=== PATIENT | male | born 1960 | race Caucasian/White ===

== ENCOUNTER 2023-09-22 09:30 | Observation (INO) ==
--- NOTE | 2023-08-17 16:04 | PAT Medication Instructions ---
Medication Instructions Date of Service August 17, 2023 Home Medications aspirin 81 mg capsule 81 mg PO QAM lisinopril 40 mg tablet 40 mg PO QAM ASK your prescriber and surgeon aspirin 81 mg capsule 81 mg PO QAM DO NOT take the morning of surgery lisinopril 40 mg tablet 40 mg PO QAM Other Notes If you have any questions please call us at [phone] or [phone] or [phone] or [phone]
--- NOTE | 2023-08-23 08:28 | Anesthesiology Consultation ---
Date of Service August 23, 2023 Assessment & Plan (1) Encounter for pre-operative examination: Chart Review Chart Review: Acceptable Risk for Surgery (pending PCP clearance ) and Patient seen in Pre Admission Testing - Awaiting PCP clearance 09/10/23- Dr. Camacho River (please send optimization to PCP regarding new onset diabetes) - Check BSG AM DOS - Patient not an ideal OPJ (BMI, functional status, possible NATHAN)- currently scheduled for 23 hour obs Per PAT appt on 08/23/23, no recent illness/disease exposures, illness related symptoms, or recent illness/disease positive tests. Will leave to surgeon's discretion if preop Covid testing needed Teaching & Discussion Pre-Anesthesia Teaching/Discussion Notes: Instructed NPO after midnight before surgery,except medications with 15 cc of water. Medication instructions provided according to the [facility] guidelines. History Surgery Operation Date: 09/22/23 11:40 Proposed Procedures p Left Total Knee Arthroplasty - Todd Ortiz DO Height/Weight Height: 5 ft 11 in Weight: 143.5 kg Allergies Allergy/AdvReac Type Severity Reaction Status Date / Time No Known Allergies Allergy Verified 08/17/23 10:44 Medications Home Medications Medication Instructions Recorded Confirmed Last Taken aspirin 81 mg capsule 81 mg PO QAM 08/17/23 08/17/23 Unknown lisinopril 40 mg tablet 40 mg PO QAM 08/17/23 08/17/23 Unknown Past Medical History Medical History (Updated 08/24/23 @ 08:35 by Elidia Akhtar PA-C) Diabetes Presumed/newly diagnosed - Hgb A1C 6.[address] [facility] appt 08/24/23 Hypertension Exercise / Class Metabolic Activity III < 4 Walking/Shop/Light housework (one flight of stairs- no chest pain, mild SOB ) Past Surgical History Surgical History History of total right knee replacement Hx of colonoscopy Hx of foot surgery rt heel>hardware intact Hx of sinus surgery Hx of umbilical hernia repair Past Anesthesia History No Hx of Anesthesia Complications and No Family Hx of Anesthesia Complications History of PONV No Hx of PONV and No Hx of Motion Sickness Social History Smoking Status: Never smoker Do You Dip or Chew Tobacco: No Hx Alcohol Use: No Hx Substance Use: No substance use type: does not use Review of Systems - Hx of snoring- sleep study many years ago- no NATHAN at that time Patient denies chest pain, shortness of breath, dyspnea on exertion, reflux, cough, wheezing, palpitations. No hx of seizures, stroke, [place]. No hx of blood clots or blood transfusions Physical Exam Vital Signs VITALS BP 134/81 P 75 TEMP 97.7 SP02 94% RESP 16 Constitutional no acute distress ENMT Mouth: no TMJ clicking Thyromental Distance: > or= 3.5 Finger Breadths (4.0) Mallampati Class: II Neck + limited neck extension (mild) Respiratory normal respiratory effort; no respiratory distress Auscultation: lungs clear to auscultation bilaterally; no wheezes Cardiovascular Rate/Rhythm: regular rate and regular rhythm Heart Sounds: no murmur Vessels: no carotid bruit Musculoskeletal Spine: no pain with cervical ROM Extremities: extremities normal to inspection Psychiatric Orientation: alert Lab Results Anesthesia Preop Results Results Anesthesia Widget: WBC 6.32 K/ul (4.8-10.8) 08/23/23 Hgb 14.6 g/dl (14.0-18.0) 08/23/23 Hct 43.2 % (42.0-52.0) 08/23/23 Plt 177 K/uL (130-400) 08/23/23 Na 141 mmol/L (136-145) 08/23/23 K 4.9 mmol/L (3.5-5.1) 08/23/23 Cl 105 mmol/L (98-107) 08/23/23 CO2 29 mmol/L (21-32) 08/23/23 BUN 19 mg/dl (6-23) 08/23/23 Creat 1.16 mg/dl (0.6-1.4) 08/23/23 Glucose Level 121 mg/dl (70-99(Fasting)) H 08/23/23 PT 10.0 Seconds (9.0-12.0) 08/23/23 PTT 29 Seconds (21-31) 08/23/23 INR 0.9 (0.9-1.1) 08/23/23 HA1c 6.8 % (4.5-5.6) H 08/23/23 Blood Type O Positive 08/23/23 Antibody Screen NEGATIVE 08/23/23 Testing Electrocardiogram Date: 08/23/23 Findings: + NSR @ (73bpm) Normal EKG per cardio
--- NOTE | 2023-08-27 08:14 | History & Physical Report ---
Date of Service August 27, 2023 date of surgery: 09/22/23 Procedure: Left Total Knee Arthroplasty Surgeon: Todd Ortiz, DO Assessment & Plan (1) Arthritis of knee, left: Plan: Further care discussed with patient and at this point in time has failed conservative measures and would like to proceed with a left total knee replacement. Plan on discharge will be home with home health physical therapy. DVT prophylaxiswith TEDs, SCDs and will also place on aspirin 81 mg p.o. b.i.d. for a month postop. Patient will have follow up appointment in our office two weeks post op for staple/suture removal and re-evaluation. Patient otherwise has no other questions or concerns. The risks and benefits have been discussed including, but not limited to, risk of infection, nerve injury, stiffness, loss of motion, failure to improve, etc. Reasonable outcomes and options of treatment were discussed. An explanation of appropriate alternatives to the procedure that may be advantageous were discussed and their risks and benefits, as well as the risks and benefits of not proceeding with treatment. I offered to answer any additional inquiries concerning the treatment involved. All the patient's questions were answered. The patient is agreeable, understanding of the treatment plan and alternatives, and wishes to proceed with the treatment plan. Please note the above document was generated using voice recognition software. It may contain grammatical, syntax or spelling errors. Any formal questions or concerns about the content, text or information contained within the body of this dictation should be directly addressed to the provider for clarification History of Present Illness Chief Complaint: left knee pain Primary Care Provider: Todd Sauer Jelani is a 62-year-old male who presented for preop evaluation prior to left total knee arthroplasty. He has a longstanding history of left knee pain which is now affecting his daily activities including walking standing using stairs. Rates his current pain as a 7 out of 10, is tried oral anti-inflammatories and Tylenol with no improvement. X-rays were reviewed which show advanced generative changes to his left knee, at this point time is failed conservative measures and wishes to proceed with left total knee arthroplasty Allergies Allergy/AdvReac Type Severity Reaction Status Date / Time No Known Allergies Allergy Verified 08/17/23 10:44 Home Medications Medication Instructions Recorded Confirmed Type aspirin 81 mg capsule 81 mg PO QAM 08/17/23 08/17/23 History lisinopril 40 mg tablet 40 mg PO QAM 08/17/23 08/17/23 History Past Med/Surg History Medical History Diabetes Presumed/newly diagnosed - Hgb A1C 6.8 at PAT appt 08/24/23 Hypertension Surgical History Hx of foot surgery rt heel>hardware intact History of total right knee replacement Hx of umbilical hernia repair Hx of colonoscopy Hx of sinus surgery Social History Smoking Status: Never smoker Second Hand Exposure: No; Do You Dip or Chew Tobacco: No; Hx Alcohol Use: No Hx Substance Use: No Preferred Language: Tamazight Communication Ability: Effective Taper [employer]ed [employer] Layout Required: No Beliefs That Will Affect Care: None Current Living Situation: Alone Feels Safe at Home: Yes Assistive Devices: Glasses Review of Systems Review of Systems: All systems reviewed & are unremarkable except as noted in HPI & below Constitutional: no fever, no chills and no sweats Respiratory: no cough and no dyspnea Cardiovascular: no chest pain, no dyspnea and no orthopnea Gastrointestinal: no abdominal pain, no nausea and no vomiting Musculoskeletal: as per Subjective / HPI Physical Exam Physical Exam: HT: 5ft 11in WT: 143.5kg Constitutional: WD/WN, vitals as above no acute distress Respiratory: normal respiratory effort, lungs clear to auscultation no respiratory distress, no labored breathing and does not use accessory muscles Cardiovascular: RRR, no murmur, no edema Gastrointestinal (Abdomen): normal bowel sounds, soft, nontender, no hepatosplenomegaly Musculoskeletal: Knee: + knee abnormal to inspection (LEFT KNEE), + effusion (+1 effusion), + limited ROM of knee (ROM 0/3/110), + knee ROM with crepitation, + joint line tenderness (medial joint line) and + Ora's sign positive; no deformity, no skin erythema, no ecchymosis, no valgus laxity, no varus laxity, anterior drawer test negative, David's sign negative and pivot shift test negative Results & Data Results & Data Diagnostic Findings Left Knee X-ray: left knee series confirm advanced degenerative changes to the left knee, greatest medial compartments and patellofemoral joint, showing joint space narrowing, osteophyte formation and subchondral sclerosis. no acute bony pathology noted.
[~2023-09-22 09:30] MED LIST: BUPIVACAINE 0.25% PF 30 ML VIAL ONE; BUPIVACAINE 0.5 % 5 MG/1 ML PF 10ML VIAL ONE
[2023-09-22] MEDS: oxyCODONE HCL 10 MG TABCR (OxyCONTIN) PO SCH (11:08)
[2023-09-22] MEDS: METOCLOPRAMIDE HCL 10 MG TABLET PO SCH (11:08)
[2023-09-22] MEDS: ACETAMINOPHEN 500 MG TAB PO SCH ×2 (11:08→17:16)
[2023-09-22] MEDS: LR 60ML/HR IV SCH (11:09)
[2023-09-22] MEDS: dexAMETHasone**PF** 10 MG/ML VIAL IV SCH (11:09)
[2023-09-22] MEDS: CeleBREX 200 MG CAP PO SCH (11:09)
[2023-09-22] MEDS: GABAPENTIN 600 MG DOSE PO SCH (11:09)
[2023-09-22] MEDS: FAMOTIDINE 20 MG TAB PO SCH (11:09)
[2023-09-22] MEDS: LR 500ML BOLUS, THEN 15ML/HR IV SCH (11:24)
--- NOTE | 2023-09-22 11:27 | History & Physical Bridge Note ---
Date of Service September 22, 2023 History & Physical Bridge Note I have examined the patient, reviewed the History & Physical and in the interval since the performance of the History & Physical I have noted the following changes of clinical significance: no changes noted
[2023-09-22] MEDS ORDERED: MIDAZOLAM HCL 1 MG/ML 2ML VIAL ONE ×2 (11:41→13:36)
[2023-09-22] MEDS ORDERED: ONDANSETRON INJ 2 MG/ML 2 ML VIAL ONE (11:41)
[2023-09-22] MEDS ORDERED: fentaNYL citrate PF 100 MCG/2 ML VIAL IV PRN (12:01)
[2023-09-22] MEDS ORDERED: ATROPINE SULFATE 0.1 MG/ML 10ML SYR IV PRN (12:01)
[2023-09-22] MEDS ORDERED: ePHEDrine sulfate 50 MG/ML AMP IV PRN (12:01)
[2023-09-22] MEDS ORDERED: PROMETHAZINE HCL 6.25 MG in SODIUM CHLORIDE 0.9% 50 ML IV PRN (12:01)
[2023-09-22] MEDS ORDERED: ONDANSETRON INJ 2 MG/ML 2 ML VIAL IV PRN ×2 (12:01→16:46)
[2023-09-22] MEDS: TRANEXAMIC ACID 1,000 MG **IV Pre-op IV SCH (13:14)
[2023-09-22] MEDS: ceFAZolin 3000MG 3,000 MG/72.5 ML BAG IV SCH (13:30)
[2023-09-22] MEDS ORDERED: PROPOFOL IV EMULSION 10 MG/ML 20 ML VIAL IV ONE ×2 (13:36→14:27)
[2023-09-22] MEDS: ORTHO JOINT ANESTHETIC ONE (14:08)
[2023-09-22] MEDS ORDERED: LIDOCAINE 2% 2 ML VIAL/AMP(20MG/ML) INFIL ONE (14:27)
[2023-09-22] MEDS: TRANEXAMIC ACID 1,000 MG **IV Intra-op IV SCH (14:41)
[2023-09-22] MEDS: ROPIV 0.5% 246mg, Ketorolac 30mg, EPINEPHrine 0.5mg in NSS INFIL SCH (14:41)
--- NOTE | 2023-09-22 14:46 | Operative Report ---
Post Operative Report Pre & Post Diagnosis Operation Date: 09/22/23 11:40 Pre-Op Diagnosis: Left knee osteoarthritis. Post-Op Diagnosis: Left knee osteoarthritis. I identified the patient and participated in the time-out.: Yes Procedure Operation Date: 09/22/23 11:40 Actual Procedures p Left Total Knee Arthroplasty(Left) utilizing [employer]am [employer] Nephew journey 2 patient- matched total knee arthroplasty size 7 femur size 5 tibia size 11 poly size 35 oval patella- Todd Ortiz DO Surgeon Todd Ortiz DO Personnel Placement Specialist VALERIE Nichols Estimated Blood Loss 10 Findings Consistent with Post-Op Diagnosis Patient presents with severe end-stage tricompartmental degenerative joint disease of the left knee varus alignment 10 degree flexion contracture marginal osteophytes subchondral sclerosis with subchondral cystic changes and moderate to large effusion Specimens Bone and cartilage Drains Medium bore Hemovac Anesthesia Type MAC Spinal Regional Complications none Disposition Accompanied Patient To Recovery: No Disposition: Recovery Room Indications Patient presents with severe end-stage DJD of the left knee having failed attempted conservative management occluding physical therapy anti-inflammatories relative rest activity modifications corticosteroid injection viscosupplementation patient presents for total knee arthroplasty Description of Procedure After proper prepping and draping of the left lower extremity anterior midline incision was made over the region of the extensor extensor mechanism after meticulous hemostasis was obtained and maintained in subcutaneous tissues a medial parapatellar incision was made The patella was subluxed lateralward the medial lateral gutter were cleaned from any hypertrophic synovitis and scar tissue of the distal femoral block was placed and the distal femoral osteotomy cut was made subsequently the chamfers anterior and posterior osteotomy cuts were made utilizing the 4-in-1 block the tibia was subsequently subluxed anteriorward medial and ateral meniscal remnants were excised in their entirety remnants of the anterior and posterior cruciate ligaments were excised in their entirety excellent exposure of the proximal tibia was obtained the tibial osteotomy guide was placed on the proximal tibial osteotomy cut was made once again the knee was irrigated with copious amounts of sterile saline solution the patella was subsequently everted lateralward thickened scar tissue around the patella was removed the patella was subsequently cut utilizing a freehand technique and was drilled prepared for final preparation and placement of patella socially flexion-extension gaps were checked and the equal and symmetric trials were placed to the appropriate femoral and tibial trials with poly-spacer being placed for equal flexion and extension gaps and full range of motion including extension to 0 and flexion to 140 the trial components after having been taken to recovery range of motion was subsequently removed meticulous hemostasis was obtained and maintained subsequently a knee block injection of joint cocktail including ropivacaine 0.5% 150 mg. Bupivacaine 0.5% epinephrine 1-200,030 mL's toradol 30 mg dexamethasone 4 mg ketamine 10 mg clonidine 100 micrograms normal saline solution 30 mg was infiltrated into the soft tissues of the posterior knee medial lateral gutters and periosteal synovium special attention was paid to protect neurovascular structures at all times subsequently trial components having been removed the knee was irrigated with sterile saline solution. debris was removed the proximal tibia was subsequently prepared and was made ready for the placement of the tibial component tibial component was also cemented and tamped into position the femoral component was subsequently placed and cemented in the position the patellar component was subsequently cemented in position because hemostasis once again obtained and maintained wound having been thoroughly irrigated with debridement and debridement lavage was performed as well as a medial parapatellar incision closed with #1 Vicryl in interrupted fashion subcutaneous was closed with #2 Vicryl skin was closed with skin clips. PA-C was necessary for prepping and drapping as well as wound closure of deep fascia Sub cutaneous tissue and skin and was necessary for the case. A sterile compressive dressing was placed patient was taken to recovery in stable condition of report dictated by Angel I attest to the content of the Intraoperative Record and any orders documented therein. Any exceptions are noted below.Due to the complex nature of the procedure, the entire surgery was performed with the operational assistance of VALERIE Nichols. The branch assistant, under direct supervision, was involved in the actual performance of all aspects of the surgical procedure including hemostasis, tissue retraction and incision, instrument management, patient positioning, and wound closure. I attest to the content of the Intraoperative Record and any orders documented therein. Any exceptions are noted below.
--- NOTE | 2023-09-22 15:35 | XRay Report ---
TWO VIEWS LEFT KNEE CLINICAL HISTORY: Postoperative examination. FINDINGS: AP and crosstable lateral portable views of the left knee are obtained. A left knee arthrop lasty is in near anatomic alignment. There has been undersurface remodeling of the patella. No acute fracture is seen. There are expected postoperative changes around the knee including skin clips, a davison rgical drain, soft tissue edema, and subcutaneous gas. IMPRESSION: Expected postoperative changes status post left knee arthroplasty. No acute fracture is s een. ACT 112: Negative or not required by law. Electronically signed by: Ascencion Souza M.D. 09/22/2023 3:34 PM
--- NOTE | 2023-09-22 16:05 | Anesthesiology Progress Note ---
Date of Service September 22, 2023 Anesthesia Post Procedure Vital Signs Vital Signs: Temp Pulse Pulse Resp BP Pulse Ox O2 Del Method 09/22/23 16:00 73 14 162/87 H 98 Nasal Cannula 09/22/23 15:50 80 16 157/81 H 95 Nasal Cannula 09/22/23 15:40 77 14 143/81 H 97 Oxymask 09/22/23 15:30 75 14 134/71 97 Oxymask 09/22/23 15:20 89 16 105/71 98 Oxymask 09/22/23 15:12 36.2 C L 89 12 121/67 96 Oxymask 09/22/23 10:50 36.9 C 74 20 176/104 H 95 Room Air O2 Flow Rate 09/22/23 16:00 2 09/22/23 15:50 2 09/22/23 15:40 2 09/22/23 15:30 2 09/22/23 15:20 5 09/22/23 15:12 10 09/22/23 10:50 Transfer of Care Handoff Completed per policy Notes Mental Status: alert / awake / arousable Patient Amnestic to Procedure: Yes Nausea / Vomiting: adequately controlled Pain: adequately controlled Airway Patency, RR, SpO2: stable & adequate BP & HR: stable & adequate Hydration State: stable & adequate Neuraxial Anesthesia: was administered and sensory block is resolving Anesthetic Complications: no major complications apparent and Pt Satisfied with anesthetic care
[2023-09-22] MEDS ORDERED: HYDROmorphone INJ 1 MG/ML SYRINGE IV PRN (16:46)
[2023-09-22] MEDS ORDERED: MAGNESIUM HYDROXIDE SUSP 30 ML UDC PO PRN (16:46)
[2023-09-22] MEDS ORDERED: bisacodyL 10 MG SUPP PR PRN (16:46)
[2023-09-22] MEDS ORDERED: METOCLOPRAMIDE HCL INJ 5 MG/ML 2 ML VIAL IV PRN (16:46)
[2023-09-22] MEDS ORDERED: NALOXONE HCL 0.4 MG/1 ML VIAL/CARP IV PRN (16:46)
[2023-09-22] MEDS ORDERED: diphenhydrAMINE Capsule 25 MG CAP PO PRN (16:46)
[2023-09-22] MEDS: KETOROLAC TROMETHAMINE 15 MG/ML VIAL IV SCH (17:17)
[2023-09-22] MEDS: SODIUM CHLORIDE 0.9% 1,000 ML IV SCH (17:17)
[2023-09-22] MEDS: oxyCODONE HCL IR 5 MG TAB (IMMEDIATE RELEASE) PO PRN (20:07)
[2023-09-22] MEDS: ceFAZolin 2000MG 2,000 MG/15 ML SYR IV SCH (20:27)
[2023-09-22] MEDS: DOCUSATE SODIUM 100 MG CAP PO SCH (20:27)
[2023-09-22] MEDS: ASPIRIN 81 MG ECTAB PO SCH (20:27)
[2023-09-22] MEDS: SENNA 8.6 MG TAB PO SCH (20:28)
--- NOTE | 2023-09-23 06:45 | Orthopedic Progress Note ---
Date of Service September 23, 2023 Assessment & Plan (1) History of total left knee replacement: Plan: POD #1 s/p Left TKA pt/ot dvt proph with JADE/SCD/ASA plan for d/c home with HHPT Admission and Anticipated Discharge Date Admission Date: September 22, 2023 Subjective POD #1 s/p Left TKA Review of Systems Constitutional: no fever, no chills and no sweats Respiratory: no cough and no dyspnea Cardiovascular: no chest pain and no dyspnea Gastrointestinal: no abdominal pain, no nausea and no vomiting Physical Exam Physical Exam: Vital Signs Temp 36.8 C 09/23/23 02:58 Pulse 72 09/23/23 02:58 Resp 18 09/23/23 02:58 BP 142/89 H 09/23/23 02:58 Pulse Ox 96 09/23/23 02:58 O2 Del Method Room Air 09/23/23 02:58 O2 Flow Rate 2 09/22/23 16:47 Intake & Output 09/22/23 09/22/23 09/23/23 06:59 18:59 06:59 Intake Total 1472.5 / 2400.833 928.333 / 2400.833 Output Total 50 / 1250 1200 / 1250 Balance 1422.5 / 1150.833 -271.667 / 1150.83 3 Weight 141.2 kg Intake: IV 272.5 / 720.833 448.333 / 720.833 Lactated Ringe r's 1,000 ml @ 15 0 / 0 mls/hr IV .Q24 H [facility] Rx#: [id number] Sodium Chlorid e 0.9% 1,000 ml @ 448.333 / 448.333 100 mls/hr IV .Q10H [facility] Rx#: [id number] Tranexamic Aci d / 0.7% NaCl 1, 200 / 200 000 mg In 100 ml @ 600 mls/hr IV TODAY@0600 [facility] Rx#:[id number] ceFAZolin 3000 MG 3,000 mg In 72 72.5 / 72.5 .5 ml @ 130 ml s/hr IV PREOP [facility] Rx#:[id number] IV Perioperative 1200 / 1200 Oral 480 / 480 Output: Urine 400 / 400 Estimated Blood Loss 10 / 10 Other 700 / 700 Drain Output 40 / 140 100 / 140 Left Knee Hemo vac 40 / 140 100 / 140 Other: Weight Measureme nt Method Standing Scale Musculoskeletal: Left Leg: NVDI, calf SNT, negative manisha sign. DP palpable, able to wiggle toes/ankle movement without difficulty. dressing clean dry and intact. Results & Data Vital Signs (Past 12 Hours) Vital Signs Temp Pulse Pulse Resp BP Pulse Ox O2 Del Method 09/23/23 02:58 36.8 C 72 18 142/89 H 96 Room Air 09/22/23 23:16 37 C 76 18 137/82 94 Room Air 09/22/23 19:58 37 C 78 16 144/86 H 93 Room Air Laboratory Results Laboratory Results POC Glucose 132 mg/dl (70-99) H 09/22/23 15:37 Impressions Knee X-Ray 09/22/23 13:45 TWO VIEWS LEFT KNEE CLINICAL HISTORY: Postoperative examination. FINDINGS: AP and crosstable lateral portable views of the left knee are obtained. A left knee arthroplasty is in near anatomic alignment. There has been undersurface remodeling of the patella. No acute fracture is seen. There are expected postoperative changes around the knee including skin clips, a surgical drain, soft tissue edema, and subcutaneous gas. IMPRESSION: Expected postoperative changes status post left knee arthroplasty. No acute fracture is seen. ACT 112: Negative or not required by law. Electronically signed by: Ascencion Souza M.D. 09/22/2023 3:34 PM
[2023-09-23 07:13] LABS: Hematocrit (blood only) 37.2 % (42.0-52.0); Hemoglobin 12.7 g/dl (14.0-18.0); Mean Corpuscular Hemoglobin 29.5 pg (25.0-34.0); Mean Corpuscular Hgb Conc 34.1 g/dL (32.0-36.0); Mean Corpuscular Volume 86.5 fL (80.0-100.0); Mean Platelet Volume 11.2 fL (9.4-12.4); Platelet Count 179 K/uL (130-400); RDW Coefficient of Variation 13.2 % (11.5-14.5); RDW Standard Deviation 41.7 fL (36.4-46.3); White Blood Count 13.44 K/ul (4.8-10.8)
--- NOTE | 2023-09-23 07:13 | Discharge Summary ---
Date of Service date of discharge: September 23, 2023 date of admission: 09/22/23 Admission HPI Per Admitting Provider Jelani is a 62-year-old male who presented for preop evaluation prior to left total knee arthroplasty. He has a longstanding history of left knee pain which is now affecting his daily activities including walking standing using stairs. Rates his current pain as a 7 out of 10, is tried oral anti-inflammatories and Tylenol with no improvement. X-rays were reviewed which show advanced generative changes to his left knee, at this point time is failed conservative measures and wishes to proceed with left total knee arthroplasty Principal Diagnosis left total knee replacement Discharge Exam Vital Signs Temp 36.8 C 09/23/23 02:58 Pulse 72 09/23/23 02:58 Resp 18 09/23/23 02:58 BP 142/89 H 09/23/23 02:58 Pulse Ox 96 09/23/23 02:58 O2 Del Method Room Air 09/23/23 02:58 O2 Flow Rate 2 09/22/23 16:47 Intake & Output 09/22/23 09/22/23 09/23/23 06:59 18:59 06:59 Intake Total 1472.5 / 2400.833 928.333 / 2400.833 Output Total 50 / 1250 1200 / 1250 Balance 1422.5 / 1150.833 -271.667 / 1150.833 Weight 141.2 kg Intake: IV 272.5 / 720.833 448.333 / 720.833 Lactated Ringer's 1,000 ml @ 15 0 / 0 mls/hr IV .Q24H [facility] Rx#: [id number] Sodium Chloride 0.9% 1,000 ml @ 448.333 / 448.333 100 mls/hr IV .Q10H [facility] Rx#: [id number] Tranexamic Acid / 0.7% NaCl 1, 200 / 200 000 mg In 100 ml @ 600 mls/hr IV TODAY@0600 [facility] Rx#:[id number] ceFAZolin 3000MG 3,000 mg In 72 72.5 / 72.5 .5 ml @ 130 mls/hr IV PREOP [facility] Rx#:[id number] IV Perioperative 1200 / 1200 Oral 480 / 480 Output: Urine 400 / 400 Estimated Blood Loss 10 / 10 Other 700 / 700 Drain Output 40 / 140 100 / 140 Left Knee Hemovac 40 / 140 100 / 140 Other: Weight Measurement Method Standing Scale Musculoskeletal left knee: NVDI, calf SNT, negative manisha sign. DP palpable, able to wiggle toes/ankle movement without difficulty. dressing clean dry and intact. Discharge Data Allergies Allergy/AdvReac Type Severity Reaction Status Date / Time No Known Allergies Allergy Verified 09/22/23 10:53 Procedures Performed Operation Date: 09/22/23 11:40 Actual Procedures p Left Total Knee Arthroplasty(Left) - Todd Jones DO Ordered Studies 09/22/23 05:00 US - OR guided needle placemen Routine Hospital Course (1) History of total left knee replacement: POD #1 s/p Left TKA pt/ot dvt proph with JADE/SCD/ASA plan for d/c home with HHPT Total Time Total Time Spent Total Time Spent (In Minutes): 20 Discharge Plan Discharge Items Patient Disposition: Home - Home Health Services Reason For Visit: POST OP TKA Discharge Diagnosis: left total knee replacement Activity: Per Instructions section Weightbearing Comment: WBAT WITH WALKER Non-emergency contact: Surgeon Call non-emergency contact if: you have any medication questions, your temperature is above 101, your wound has increased redness, your wound has increased drainage and your wound pain has increased Follow-up/Referrals: Todd Sauer M.D. [Primary Care Provider] - Diet: Regular Addtl Attending Provider Instructions: ACTIVITY RECOMMENDATIONS: SELF CARE INSTRUCTIONS AFTER TOTAL KNEE REPLACEMENT A. You may need to continue a physical therapy program after discharge from the hospital. There are several options available to you. Your doctor will assist you in selecting the best one for you. 1. An out-patient facility 2 to 3 times a week for therapy or home therapy. 2. Continue working on all exercises taught to you in the hospital. Your goals should be to increase bending of your knee to 90 degrees and beyond and to fully straighten your knee. B. You may progress at your own pace from walking with a walker or crutches to a cane; then to no assistive devices. C. Make walking a part of your daily routine. Be up as much as comfortable with rest periods throughout the day. Rest with leg elevation is very important. Use the ice wrap frequently for the first 3-4 weeks. D. There are no restrictions on activities. You may ride in a car, shop, participate in drafting technician and all social activities. E. Wear the long elastic stockings (JADE hose) 20 hours a day for 2 weeks after surgery. They can be removed several times a day for laundering and for a bath. F. You may shower, no tub baths until cleared by your doctor. SPECIAL CARE INSTRUCTIONS: VERY IMPORTANT TO READ AND REVIEW A. There are a few signs you need to watch for after you are home. Call [facility] if you notice any of the followin. Increased severe knee pain. Some pain is expected especially when you exercise. 2. Increased swelling in your leg or knee; pain or swelling of the calf muscle in either lower leg. 3. Any fluid drainage from the incision. 4. Shortness of breath or chest pain. B. Please call [facility] at if you have any concerns or questions about your operation or recovery. The doctor or his nurse will return your call promptly. C. You must take antibiotics before dental work, bladder, bowel or other surgery. Your doctor will provide you with a permanent care to carry describing this precaution. IMPORTANT: * REMEMBER TO TAKE ASPIRIN, 81 MG, TWICE DAILY FOR 4 WEEKS UNLESS OTHERWISE DIRECTED. THIS IS YOUR BLOOD THINNER. * HIGH RISK PATIENTS MAY BE PRESCRIBED A STRONGER BLOOD THINNER. THIS WILL BE PROVIDED AT DISCHARGE. * CALL IF INCREASED PAIN, REDNESS, DRAINAGE OR FEVER GREATER THAT 101. * WEAR JADE HOSE 20 HOURS PER DAY FOR 2 WEEKS. DRESSING INSTRUCTIONS * VINCE Dressing- This is a large suction dressing covering your incision. This will help pull any excess drainage from the wound and allow your incision to heal properly. You may shower with this if you can keep the unit outside of the shower. If any bleeding or leakage is noted please call your doctor's office. This will remain on your incision for 7 days and then should be removed. This can be done yourself or by the home nursing staff if applicable. The entire unit is disposable once removed. Once removed, keep incision clean and dry. If redness or drainage is noted, please call your surgeon. ONCE VINCE IS REMOVED, FOLLOW THESE INSTRUCTIONS: DERMABOND Prineo- This is a mesh tape dressing that is covered with glue. It should remain in place until the incision is properly healed, usually 10-14 days. This dressing is designed to naturally slough off. You may trim the excess mesh tape as it peels off. Incision may be briefly wet in a shower. Dry immediately by blotting with a clean, dry towel. Do not bath or swim until instructed by your doctor. Do not scratch, rub, or pick at the dressing. Do not apply any topical ointments or lotions until dressing is completely removed and/or instructed by your doctor. There may be a small piece of suture material at one end of your incision. Do not pull or trim this. If it is bothersome or catching on clothing, you may cover it with a band-aid. IF INCISION IS LEAKING THROUGH DRESSING, CALL THE OFFICE . FOLLOW UP VISIT: If appointment is not already scheduled: Please call [facility] to make a follow-up appointment for 2 weeks after your surgery at . Stand-Alone Forms: My [facility] Medications and DC Order Prescriptions: New acetaminophen 500 mg tablet 1,000 mg PO Q8 21 Days Qty: 126 0RF celecoxib [Celebrex] 200 mg capsule 200 mg PO BID 30 Days Qty: 60 0RF aspirin 81 mg tablet,delayed release (DR/EC) 81 mg PO BID 30 Days Qty: 60 0RF cefadroxil 500 mg capsule 500 mg PO BID 14 Days Qty: 28 0RF docusate sodium 100 mg Capsule 100 mg PO BID Qty: 20 0RF oxycodone 5 mg tablet 5 - 10 mg PO Q6H PRN (Reason: pain) Qty: 30 0RF Rx Instructions: ongoing therapy, supervising dr cece jnoes. max 6 tabs in 24 hours. date of surgery 09/22/23 Continued lisinopril 40 mg Tablet 40 mg PO QAM Discontinued aspirin 81 mg Capsule 81 mg PO QAM Admission Data Admit Date/Time: 09/22/23 13:45 Attending Provider: Todd Jones Admit Provider: Todd Jones Primary Care Provider: Todd Sauer
[2023-09-23 07:34] LABS: BUN Creatinine Ratio 18.8 (10-20); Calcium 8.8 mg/dl (8.6-10.3); Creatinine Clr Calc Pharmacy 82.8 ml/min; Est GFR (African American) 65.9 ml/min; Est GFR (Non-African American) 56.9 ml/min; Potassium 4.2 mmol/L (3.5-5.1)
[2023-09-23] MEDS: lisinopril 40 MG TAB PO SCH (09:29)
[2023-09-23] MEDS: MULTIVITAMIN TAB PO SCH (09:29)
[2023-09-23] MEDS ORDERED: CeleBREX 200 MG CAP PO SCH (21:00)
== END 2023-09-23 12:00 | disposition home health service (06) ==
LOC: 3E 09:30 → ASU 09:30